=== PATIENT | female | born 1990 | race American Indian/Alaskan Native ===

== ENCOUNTER 2019-09-15 12:05 | Emergency (ER) | payer SELFPAY ==
[2019-09-15 12:11] VITALS: BP 113/79
--- NOTE | 2019-09-15 12:34 | Emergency Department Report ---
ED Eye Problem HPI - General Chief complaint: Eye Problems Stated complaint: RIGHT EYE PAIN Time Seen by Provider: 09/15/19 12:29 Source: patient Mode of arrival: Ambulatory Limitations: No Limitations - History of Present Illness Initial comments: pt is a 29 yo female who presents to the ED with c/o right eye pain and redness that began three days ago. she states she frequently has watery drainage. she denies getting anything into the eye. she denies any contact lens use. she denies any vision changes. she denies any known sick contacts. no pmhx. allergy to terbutaline. - Related Data Previous Rx's Medication Instructions Recorded Last Taken Type Polymyxin B Sulf/Trimethoprim 1 drop OD Q3HR 10 Days #1 bottle 09/15/19 Unknown Rx [Polytrim Eye Drops 60622acegz/0.1%] Allergies Allergy/AdvReac Type Severity Reaction Status Date / Time terbutaline [From Brethine] Allergy Shortness Verified 09/15/19 12:07 of Breath ED Review of Systems ROS: Stated complaint: RIGHT EYE PAIN Other details as noted in HPI Comment: All other systems reviewed and negative ED Past Medical Hx - Past Medical History Additional medical history: HIV - Surgical History Past Surgical History?: No - Social History Smoking Status: Current Every Day Smoker Substance Use Type: Alcohol - Medications Home Medications: Home Medications Medication Instructions Recorded Confirmed Last Taken Type Polymyxin B Sulf/Trimethoprim 1 drop OD Q3HR 10 Days #1 bottle 09/15/19 Unknown Rx [Polytrim Eye Drops 98234pfqeu/0.1%] ED Physical Exam - General Limitations: No Limitations General appearance: alert, in no apparent distress - Head Head exam: Present: atraumatic, normocephalic - Eye Eye exam: Present: PERRL, EOMI, conjunctival injection (right), periorbital swelling (small amount right eyelid ). Absent: scleral icterus, nystagmus, periorbital tenderness - ENT ENT exam: Present: mucous membranes moist - Neurological Exam Neurological exam: Present: alert, oriented X3 - Psychiatric Psychiatric exam: Present: normal affect, normal mood - Skin Skin exam: Present: warm, dry, intact ED Course Vital Signs 09/15/19 12:10 Temperature 98.8 F Pulse Rate 78 Respiratory 16 Rate Blood Pressure 113/79 O2 Sat by Pulse 100 Oximetry ED Medical Decision Making - Medical Decision Making pt is a 29 yo female who presents to the ED with c/o right eye pain and redness that began three days ago. she states she frequently has watery drainage. she denies getting anything into the eye. she denies any contact lens use. she denies any vision changes. she denies any known sick contacts. no pmhx. allergy to terbutaline. Vitals are normal. On exam: right conjunctival injection, small amount of edema to the right upper eyelid. Patient given prescription for antibiotic eyedrops. advised pt to please use medication as prescribed. avoid rubbing the eyes. follow up with an loss control representative if symptoms are not improving. return to the emergency room for any new or worsening symptoms. - Differential Diagnosis Conjunctivitis, blepharitis, chalazion, hordeolum Critical care attestation.: If time is entered above; I have spent that time in minutes in the direct care of this critically ill patient, excluding procedure time. ED Disposition Clinical Impression: Conjunctivitis Qualifiers: Conjunctivitis type: acute Acute conjunctivitis type: unspecified Laterality: right Qualified Code(s): H10.31 - Unspecified acute conjunctivitis, right eye Disposition: DC-01 TO HOME OR SELFCARE Is pt being admited?: No Does the pt Need Aspirin: No Condition: Stable Instructions: Conjunctivitis (ED) Additional Instructions: please use medication as prescribed. avoid rubbing the eyes. follow up with an loss control representative if symptoms are not improving. return to the emergency room for any new or worsening symptoms. Prescriptions: Polymyxin B Sulf/Trimethoprim [Polytrim Eye Drops 71121yjqik/0.1%] 1 drop OD Q3HR 10 Days #1 bottle Referrals: LUIS MANUEL DELEON MD [Staff Physician] - 3-5 Days [facility] - 3-5 Days Time of Disposition: 12:36 Print Language: DJIBOUTIAN
== END 2019-09-15 12:44 | disposition home or self-care (01) ==
LOC: ED 12:05
DX: H10.9 Unspecified conjunctivitis (principal); F17.200 Nicotine dependence, unspecified, uncomplicated; Z21 Asymptomatic human immunodeficiency virus [HIV] infection status; Z79.899 Other long term (current) drug therapy; Z88.8 Allergy status to other drugs, medicaments and biological substances
CPT/HCPCS: 99282

== ENCOUNTER 2021-03-08 07:58 | Emergency (ER) | payer SELFPAY ==
--- NOTE | 2021-03-08 08:21 | Emergency Department Report ---
ED ENT HPI - General Chief complaint: Headache Stated complaint: HEADACHE Time Seen by Provider: 03/08/21 08:12 Source: patient Mode of arrival: Ambulatory Limitations: No Limitations - History of Present Illness Initial comments: The patient was evaluated in the emergency department for symptoms described in the history of present illness. He/she was evaluated in the context of the global COVID-19 pandemic, which necessitated consideration that the patient might be at risk for infection with the virus that causes COVID-19. Institutional protocols and algorithms that pertain to the evaluation of patients at risk for COVID-19 are in a state of rapid change based on information released by regulatory bodies including the CDC and federal and state organizations. These policies and algorithms were followed during the patient's care in the emergency department. Please note that these policies, procedures and recommendations changed on a rapid basis. 30-year-old -[place] female presents to the emergency room reporting that she is has pain in her face for 4 to 5 days and states that her smell is terrible. She reports a headache that is actually located in the frontal area between her eyes. Patient states has been taking Tylenol and ibuprofen and using a [place] pot. Patient denies any fever chills but reports a cough in the morning. She states she uses a humidifier. She reports she has a history of allergies and usually takes Zyrtec's but has been off of her medicine for the last 4 days. Onset/Timin -: days(s) Severity: moderate Quality: aching Improves with: none Worsens with: none Associated Symptoms: denies: fever, cough, gum swelling, toothache, pain with swallowing, sore throat, tinnitus, hearing loss, discharge from ear, rhinorrhea - Related Data Home Medications Medication Instructions Recorded Confirmed Last Taken Biktarvy 50-200-25 mg (Nf) 200 mg PO DAILY 08/16/20 08/23/20 Unknown Previous Rx's Medication Instructions Recorded Last Taken Type Polymyxin B Sulf/Trimethoprim 1 drop OD Q3HR 10 Days #1 bottle 09/15/19 Unknown Rx [Polytrim Eye Drops 60371xlaxh/0.1%] cephALEXin [Keflex] 500 mg PO Q8HR #30 cap 12/03/19 Unknown Rx traMADoL [Ultram] 50 mg PO Q6HR PRN #12 tablet 12/03/19 Unknown Rx Allergies Allergy/AdvReac Type Severity Reaction Status Date / Time terbutaline [From Brethine] Allergy Shortness Verified 03/08/21 08:02 of Breath ED Dental HPI - General Chief complaint: Headache Stated complaint: HEADACHE Time Seen by Provider: 03/08/21 08:12 Source: patient Mode of arrival: Ambulatory Limitations: No Limitations - Related Data Home Medications Medication Instructions Recorded Confirmed Last Taken Biktarvy 50-200-25 mg (Nf) 200 mg PO DAILY 08/16/20 08/23/20 Unknown Previous Rx's Medication Instructions Recorded Last Taken Type Polymyxin B Sulf/Trimethoprim 1 drop OD Q3HR 10 Days #1 bottle 09/15/19 Unknown Rx [Polytrim Eye Drops 36579fhxxh/0.1%] cephALEXin [Keflex] 500 mg PO Q8HR #30 cap 12/03/19 Unknown Rx traMADoL [Ultram] 50 mg PO Q6HR PRN #12 tablet 12/03/19 Unknown Rx Allergies Allergy/AdvReac Type Severity Reaction Status Date / Time terbutaline [From Brethine] Allergy Shortness Verified 03/08/21 08:02 of Breath ED Review of Systems ROS: Stated complaint: HEADACHE Other details as noted in HPI Comment: All other systems reviewed and negative ED Past Medical Hx - Past Medical History Hx HIV: Yes Additional medical history: HIV - Surgical History Additional Surgical History: LEEP - Social History Smoking Status: Never Smoker - Medications Home Medications: Home Medications Medication Instructions Recorded Confirmed Last Taken Type Polymyxin B Sulf/Trimethoprim 1 drop OD Q3HR 10 Days #1 bottle 09/15/19 08/23/20 Unknown Rx [Polytrim Eye Drops 17245jejus/0.1%] cephALEXin [Keflex] 500 mg PO Q8HR #30 cap 12/03/19 08/23/20 Unknown Rx traMADoL [Ultram] 50 mg PO Q6HR PRN #12 tablet 12/03/19 08/23/20 Unknown Rx Biktarvy 50-200-25 mg (Nf) 200 mg PO DAILY 08/16/20 08/23/20 Unknown History ED Physical Exam - General Limitations: No Limitations General appearance: alert, in no apparent distress - Head Head exam: Present: atraumatic, normocephalic - Eye Eye exam: Present: normal appearance, PERRL, EOMI. Absent: periorbital swelling, periorbital tenderness - ENT ENT exam: Present: normal exam, mucous membranes moist, TM's normal bilaterally, normal external ear exam - Respiratory Respiratory exam: Present: normal lung sounds bilaterally. Absent: chest wall tenderness, accessory muscle use - Cardiovascular Cardiovascular Exam: Present: regular rate - Extremities Exam Extremities exam: Present: normal inspection, full ROM. Absent: pedal edema - Back Exam Back exam: Present: normal inspection, full ROM - Neurological Exam Neurological exam: Present: alert, oriented X3, normal gait - Psychiatric Psychiatric exam: Present: normal affect, normal mood - Skin Skin exam: Present: warm, dry, intact, normal color. Absent: rash ED Course Vital Signs 03/08/21 08:00 Temperature 97.9 F Pulse Rate 73 Respiratory 16 Rate Blood Pressure 135/78 [Right] O2 Sat by Pulse 100 Oximetry ED Medical Decision Making - Medical Decision Making 30-year-old -[place] female presents to the emergency room reporting that she is has pain in her face for 4 to 5 days and states that her smell is terrible. She reports a headache that is actually located in the frontal area between her eyes. Patient states has been taking Tylenol and ibuprofen and using a [place] pot. Patient denies any fever chills but reports a cough in the morning. She states she uses a humidifier. She reports she has a history of al lergies and usually takes Zyrtec's but has been off of her medicine for the last 4 days. Allergic rhinitis recommend Zyrtec's D, Flonase Tylenol ibuprofen increase fluid intake. Continue using [place] pot and follow-up with a primary care provider. Patient symptoms have been less than 10 days. She does not have any periorbital cellulitis her ears are clear she does not qualify for antibiotics at this time. Recommend conservative measures and to follow-up with a primary care provider. Symptomatic management Symptomatic management of acute rhinosinusitis (ARS), both viral and bacterial in etiology, aims to relieve symptoms of nasal obstruction and rhinorrhea as well as the systemic signs and symptoms such as fever and fatigue. When needed, we suggest nxzk-jus-nwnbtkq analgesics and antipyretics, saline irrigation, and intranasal glucocorticoids for symptomatic management in patients with ARS up-to-date Critical care attestation.: If time is entered above; I have spent that time in minutes in the direct care of this critically ill patient, excluding procedure time. ED Disposition Clinical Impression: Acute viral sinusitis Disposition: 01 HOME / SELF CARE / HOMELESS Is pt being admited?: No Does the pt Need Aspirin: No Condition: Stable Instructions: Sinusitis, Adult, Brxm-pe-Xykj Additional Instructions: Recommend [id number]-[id number] Zyrtec-D or Claritin-D, Flonase or Nasacort Tylenol ibuprofen Afrin at night when he gets worse. And normal saline rinses. If symptoms persist more than 10 days to follow-up with ear nose and throat provider or urgent care. Referrals: LATIA GARCIA MD [Referring] - 3-5 Days Time of Disposition: 08:30
[2021-03-08 08:39] VITALS: BP 117/76
== END 2021-03-08 08:38 | disposition home or self-care (01) ==
LOC: ED 07:58
DX: J01.90 Acute sinusitis, unspecified (principal); Z88.8 Allergy status to other drugs, medicaments and biological substances; Z79.899 Other long term (current) drug therapy
CPT/HCPCS: 99282

== ENCOUNTER 2021-05-11 00:06 | Emergency (ER) | payer SELFPAY ==
[2021-05-11 00:19] VITALS: BP 116/55
[2021-05-11] MEDS ORDERED: predniSONE 20 MG TAB PO ONE (00:26)
[2021-05-11] MEDS ORDERED: IPRATROPIUM/ALBUTEROL SULFATE 3 ML AMPUL.NEB IH ONE (00:26)
--- NOTE | 2021-05-11 00:33 | Emergency Department Report ---
- General Chief Complaint: Upper Respiratory Infection Stated Complaint: COUGH, WHEEZING AND CHESTPAIN Time Seen by Provider: 05/11/21 00:22 Source: patient Mode of arrival: Ambulatory Limitations: No Limitations - History of Present Illness Initial Comments: Patient is a 30-year-old female presents emergency room complaints of a dry cough that began yesterday. She has associated chest congestion, wheezing, chest soreness after frequent coughing. She denies any fever, vomiting, diarrhea, chills, shortness of breath. She denies any known sick contacts or recent travel. She has not been vaccinated for COVID-19. Patient has a past medical history of HIV and reports that she is undetectable. Allergy to terbutaline, she states that it caused her to have shortness of breath but no angioedema/anaphylaxis. She states that she is a non-smoker. - Related Data Home Medications Medication Instructions Recorded Confirmed Last Taken Biktarvy 50-200-25 mg (Nf) 200 mg PO DAILY 08/16/20 08/23/20 Unknown Previous Rx's Medication Instructions Recorded Last Taken Type Polymyxin B Sulf/Trimethoprim 1 drop OD Q3HR 10 Days #1 bottle 09/15/19 Unknown Rx [Polytrim Eye Drops [id number]/0.1%] cephALEXin [Keflex] 500 mg PO Q8HR #30 cap 12/03/19 Unknown Rx traMADoL [Ultram] 50 mg PO Q6HR PRN #12 tablet 12/03/19 Unknown Rx Albuterol Sulfate [Proventil Hfa] 1 puff IH TID PRN #1 hfa.aer.ad 05/11/21 Unknown Rx Benzonatate [Tessalon Perles] 100 mg PO Q8HR PRN #10 capsule 05/11/21 Unknown Rx guaiFENesin ER [Mucinex ER] 600 mg PO Q12H #14 tablet.er 05/11/21 Unknown Rx predniSONE [Deltasone] 40 mg PO QDAY 5 Days #10 tab 05/11/21 Unknown Rx Allergies Allergy/AdvReac Type Severity Reaction Status Date / Time terbutaline [From Brethine] Allergy Shortness Verified 03/08/21 08:02 of Breath ED Review of Systems ROS: Stated complaint: COUGH, WHEEZING AND CHESTPAIN Other details as noted in HPI Comment: All other systems reviewed and negative ED Past Medical Hx - Past Medical History Previous Medical History?: Yes Hx HIV: Yes Additional medical history: HIV - Surgical History Past Surgical History?: Yes Additional Surgical History: LEEP - Social History Smoking Status: Never Smoker Substance Use Type: None - Medications Home Medications: Home Medications Medication Instructions Recorded Confirmed Last Taken Type Polymyxin B Sulf/Trimethoprim 1 drop OD Q3HR 10 Days #1 bottle 09/15/19 08/23/20 Unknown Rx [Polytrim Eye Drops 20260lqquc/0.1%] cephALEXin [Keflex] 500 mg PO Q8HR #30 cap 12/03/19 08/23/20 Unknown Rx traMADoL [Ultram] 50 mg PO Q6HR PRN #12 tablet 12/03/19 08/23/20 Unknown Rx Biktarvy 50-200-25 mg (Nf) 200 mg PO DAILY 08/16/20 08/23/20 Unknown History Albuterol Sulfate [Proventil Hfa] 1 puff IH TID PRN #1 hfa.aer.ad 05/11/21 Unknown Rx Benzonatate [Tessalon Perles] 100 mg PO Q8HR PRN #10 capsule 05/11/21 Unknown Rx guaiFENesin ER [Mucinex ER] 600 mg PO Q12H #14 tablet.er 05/11/21 Unknown Rx predniSONE [Deltasone] 40 mg PO QDAY 5 Days #10 tab 05/11/21 Unknown Rx ED Physical Exam - General Limitations: No Limitations General appearance: alert, in no apparent distress - Head Head exam: Present: atraumatic, normocephalic - Eye Eye exam: Present: normal appearance - ENT ENT exam: Present: mucous membranes moist - Respiratory Respiratory exam: Present: wheezes (occasional very mild expiratory wheeze). Absent: respiratory distress, rales, rhonchi, stridor, chest wall tenderness, accessory muscle use, decreased breath sounds, prolonged expiratory - Cardiovascular Cardiovascular Exam: Present: regular rate, normal rhythm, normal heart sounds. Absent: systolic murmur, diastolic murmur, rubs, gallop - Neurological Exam Neurological exam: Present: alert, oriented X3 - Psychiatric Psychiatric exam: Present: normal affect, normal mood - Skin Skin exam: Present: warm, dry, intact ED Course Vital Signs 05/11/21 05/11/21 00:14 02:45 Temperature 98 F Pulse Rate 69 85 Respiratory 18 16 Rate Blood Pressure 116/55 O2 Sat by Pulse 97 100 Oximetry ED Medical Decision Making - Lab Data Result diagrams: 05/11/21 00:42 05/11/21 00:42 Lab Results 05/11/21 05/11/21 05/11/21 Range/Units 00:42 00:42 00:42 WBC 6.7 (4.5-11.0) K/mm3 RBC 4.25 (3.65-5.03) M/mm3 Hgb 12.2 (10.1-14.3) gm/dl Hct 38.0 (30.3-42.9) % MCV 89 (79-97) fl MCH 29 (28-32) pg MCHC 32 (30-34) % RDW 14.6 (13.2-15.2) % Plt Count 202 (140-440) K/mm3 Lymph % (Auto) 30.9 (13.4-35.0) % Cobb % (Auto) 5.9 (0.0-7.3) % Eos % (Auto) 3.2 (0.0-4.3) % Baso % (Auto) 0.3 (0.0-1.8) % Lymph # (Auto) 2.1 (1.2-5.4) K/mm3 Cobb # (Auto) 0.4 (0.0-0.8) K/mm3 Eos # (Auto) 0.2 (0.0-0.4) K/mm3 Baso # (Auto) 0.0 (0.0-0.1) K/mm3 Seg Neutrophils % 59.7 (40.0-70.0) % Seg Neutrophils # 4.0 (1.8-7.7) K/mm3 Sodium 138 (137-145) mmol/L Potassium 3.7 (3.6-5.0) mmol/L Chloride 104.4 (98-107) mmol/L Carbon Dioxide 22 (22-30) mmol/L Anion Gap 15 mmol/L BUN 11 (7-17) mg/dL Creatinine 0.8 (0.6-1.2) mg/dL Estimated GFR > 60 ml/min BUN/Creatinine Ratio 14 % Glucose 91 (65-100) mg/dL Calcium 9.4 (8.4-10.2) mg/dL Total Bilirubin 0.50 (0.1-1.2) mg/dL AST 18 (5-40) units/L ALT 9 (7-56) units/L Alkaline Phosphatase 48 (35-129) units/L Total Protein 8.5 H (6.3-8.2) g/dL Albumin 4.4 (3.9-5) g/dL Albumin/Globulin Ratio 1.1 % HCG, Qual Negative (Negative) - Radiology Data Radiology results: report reviewed Ordering Physician: MARTIN WARNER Date of Service: 05/11/21 Procedure(s): XR chest routine 2V Accession Number(s): [id number] cc: MARTIN WARNER Fluoro Time In Minutes: CHEST 2 VIEWS INDICATION / CLINICAL INFORMATION: Cough, wheezing and congestion; hx of HIV. COMPARISON: None available. FINDINGS: SUPPORT DEVICES: None. HEART / MEDIASTINUM: The heart size and pulmonary vasculature are normal. LUNGS / PLEURA: No significant pulmonary or pleural abnormality. No pneumothorax. ADDITIONAL FINDINGS: No significant additional findings. IMPRESSION: No acute findings. Signer Name: Royer Stoll MD Signed: 05/11/2021 2:27 AM Workstation Name: [id number] Transcribed By: RT Dictated By: Royer Stoll MD Electronically Authenticated By: Royer Stoll MD Signed Date/Time: 05/11/21226 DD/ 5 TD/TT: - Medical Decision Making Patient is a 30-year-old female presents emergency room complaints of a dry cough that began yesterday. She has associated chest congestion, wheezing, chest soreness after frequent coughing. She denies any fever, vomiting, diarr hea, chills, shortness of breath. She denies any known sick contacts or recent travel. She has not been vaccinated for COVID-19. Patient has a past medical history of HIV and reports that she is undetectable. Allergy to terbutaline, she states that it caused her to have shortness of breath but no angioedema/anaphylaxis. She states that she is a non-smoker. Vitals are normal. On exam patient has occasional very mild wheeze, no respiratory distress, no accessory muscle use, no rales, no rhonchi. Chest x-ray no acute process. labs are stable. Patient has no clinical signs of bacterial pneumonia or bacterial bronchitis. Patient given DuoNeb and prednisone while in the emergency department and wheezing has completely resolved and patient states that she is feeling much better. Symptoms likely related to acute bronchitis versus URI. Patient given prescription for medication. Advised patient Please take medication as prescribed. Increase your fluid intake. Follow-up with your primary care doctor. Return to emergency room for any new or worsening symptoms. Recommend outpatient COVID-19 testing and if positive will need to self quarantine for 10 days from onset of symptoms. Critical care attestation.: If time is entered above; I have spent that time in minutes in the direct care of this critically ill patient, excluding procedure time. ED Disposition Clinical Impression: Acute bronchitis Qualifiers: Bronchitis organism: unspecified organism Qualified Code(s): J20.9 - Acute bronchitis, unspecified Disposition: HOME / SELF CARE / HOMELESS Is pt being admited?: No Does the pt Need Aspirin: No Condition: Stable Instructions: Acute Bronchitis, Adult, Acute Bronchitis (ED) Additional Instructions: Please take medication as prescribed. Increase your fluid intake. Follow-up with your primary care doctor. Return to emergency room for any new or worsening symptoms. Recommend outpatient COVID-19 testing and if positive will need to self quarantine for 10 days from onset of symptoms. Prescriptions: predniSONE [Deltasone] 40 mg PO QDAY 5 Days #10 tab guaiFENesin ER [Mucinex ER] 600 mg PO Q12H #14 tablet.er Albuterol Sulfate [Proventil Hfa] 1 puff IH TID PRN #1 hfa.aer.ad PRN Reason: shortness of breath/wheezing Benzonatate [Tessalon Perles] 100 mg PO Q8HR PRN #10 capsule PRN Reason: cough Referrals: [facility] [Other] - 2-3 Days Time of Disposition: 02:33 Print Language: ROMANIAN
[2021-05-11 01:10] LABS: Basophils % (Auto) 0.3 % (0.0-1.8); Eosinophils # (Auto) 0.2 K/mm3 (0.0-0.4); Eosinophils % (Auto) 3.2 % (0.0-4.3); Hemoglobin 12.2 gm/dl (10.1-14.3); Lymphocytes # (Auto) 2.1 K/mm3 (1.2-5.4); Lymphocytes % (Auto) 30.9 % (13.4-35.0); Mean Corpuscular HGB Conc 32 % (30-34); Mean Corpuscular Volume 89 fl (79-97); Monocytes # (Auto) 0.4 K/mm3 (0.0-0.8); Monocytes % (Auto) 5.9 % (0.0-7.3); Platelet Count 202 K/mm3 (140-440); Red Blood Count 4.25 M/mm3 (3.65-5.03); Red Cell Distribution Width 14.6 % (13.2-15.2)
[2021-05-11 01:34] LABS: Alanine Aminotransferase 9 units/L (7-56); Albumin 4.4 g/dL (3.9-5); BUN/Creatinine Ratio 14; Blood Urea Nitrogen 11 mg/dL (7-17); Calcium 9.4 mg/dL (8.4-10.2); Hemolysis Index 1
--- NOTE | 2021-05-11 02:32 | XRay Report ---
CHEST 2 VIEWS INDICATION / CLINICAL INFORMATION: Cough, wheezing and congestion; hx of HIV. COMPARISON: None available. FINDINGS: SUPPORT DEVICES: None. HEART / MEDIASTINUM: The heart size and pulmonary vasculature are normal. LUNGS / PLEURA: No significant pulmonary or pleural abnormality. No pneumothorax. ADDITIONAL FINDINGS: No significant additional findings. IMPRESSION: No acute findings. Signer Name: Royer Stoll MD Signed: 05/11/2021 2:27 AM Workstation Name: [id number]
== END 2021-05-11 02:45 | disposition home or self-care (01) ==
LOC: ED 00:06
DX: J20.9 Acute bronchitis, unspecified (principal); Z88.8 Allergy status to other drugs, medicaments and biological substances
CPT/HCPCS: 36415; 71046; 80053; 84703; 85025; 94640; 99284; J7512